=== PATIENT | female | born 1990 | race Caucasian/White ===

== ENCOUNTER 2016-06-08 11:37 | Emergency (ER) | payer BC ==
[2016-06-08 11:58] VITALS: BP 146/89
[2016-06-08] MEDS ORDERED: ALBUTEROL SULFATE/IPRATROPIUM 3 ML NEBU IH ONE ×2 (12:18→12:22)
--- NOTE | 2016-06-08 13:20 | ERNOTE ---
Date of Service: 06/08/16 Time Seen by Provider: 06/08/16 12:05 Stated Complaint: COUGH,DIZZINESS Presenting Symptoms:: cough Exam Limitations: no limitations Immunizations: IMMUNIZATION HX Immunizations Up to Date Yes History of Influenza Vaccine No Hx Pneumococcal Vaccination No Allergies/Adverse Reactions: Allergies No Known Allergies Allergy (Verified 06/08/16 11:58) Home Medications: HOME MEDICATIONS Promethazine HCl/Codeine [Phenergan W/Codeine Syrup] 5 ml PO Q8H PRN #90 ml [Last Taken Unknown] - History of Present Ilness Narrative: Patient comes due to coughing and wheezing Timing: intermittent Severity: moderate Frequency/Possible Cause: Denies: allergen exposure, irritant gases exposure, smoke exposure, foreign travel Modifying Factors - Improves: Reports: nothing Modifying Factors - Worsens: Reports: coughing Associated Symptoms: Reports: cough, shortness of breath, sore throat, fever/ chills Prior Treatment: Reports: recently seen - Patient was given Tx by PCP recently Review of Systems - Review of Systems Constitutional: Present: fever, chills, malaise EYE: Present: no symptoms reported ENT: Present: no symptoms reported Respiratory: Present: cough - some production does not know the color, wheezing Cardiology: Present: no symptoms reported Gastrointestinal/Abdominal: Present: no symptoms reported Genitourinary: Present: no symptoms reported Musculoskeletal: Present: no symptoms reported Skin: Present: no symptoms reported Neurological: Present: no symptoms reported Endocrine: Present: no symptoms reported Hematologic/Lymphatic: Absent: easy bruising, easy bleeding Psych: Present: no symptoms reported - Patient's Past Medical History Patient History - Medical: Obesity Patient History - Cardiac/Respiratory: No pertinent hx Patient History - Cancer: No Hx of Cancer Patient History - Surgical Procedures: No surgical history - Social History Living Situations: home Does anyone smoke in the home?: No Smoking Status: Never smoker Have you smoked in the past 12 months: No Alcohol Use: none Drug Use: none Physical Exam - Physical Exam General Appearance: Present: wd/wn, alert, no apparent distress Eye Exam: Normal inspection: bilateral, PERRL: bilateral Ears, Nose, Throat: Present: normal ENT inspection, hearing grossly normal, normal pharynx Neck: Present: normal inspection, nontender. Absent: carotid bruit Respiratory: Present: no respiratory distress, no accessory muscle use, expiration (prolonged), wheezing - scattered. Absent: crackles, rales Cardiovascular/Chest: Present: regular rate, rhythm. Absent: systolic murmur, diastolic murmur Gastrointestinal/Abdominal: Present: nontender, nondistended, soft, no organomegaly Back Exam: Present: no CVA tenderness Extremity Exam: Present: normal inspection, non-tender, no edema, normal range of motion Neurological Exam: Present: alert, oriented, normal mood/affect, no motor/ sensory deficits Skin Exam: Present: normal color, warm/dry Lymphatic Exam: Present: no adenopathy ED Progress - Date and Time Seen: Date and Time: 06/08/16 13:19 Patient show clinical improvement with Tx. Patient is to continue Tx as PCP recommended. Patient at the moment with no distress and is not toxic nor septic. - Vital Signs Patient's Vital Signs:: I have reviewed the patient's vital signs. Vital Signs: Vital Signs 06/08/16 06/08/16 06/08/16 11:52 12:24 12:33 Temperature 36.6 C Pulse Rate 81 82 109 H Respiratory 16 12 12 Rate Blood Pressure 146/89 O2 Sat by Pulse 99 98 98 Oximetry - X-Ray X-Ray #1 X-Ray: chest Interpretation: Interp. by me X-ray Comments: No consolidation were seen on film. - Progress/Reassessment Chief Complaint: Upper Respiratory Symptoms Progress:: Re-examined - Transfer of Care Expected Disposition: Discharge Departure - Departure Clinical Impression: Bronchitis Disposition: Home self-care Condition: Stable Instructions: Bronchospasm, Adult, Acute Bronchitis Referrals: Haleigh Bland MD [Primary Care Provider] - Prescriptions: Promethazine HCl/Codeine [Phenergan W/Codeine Syrup] 5 ml PO Q8H PRN #90 ml PRN Reason: Cough
== END 2016-06-08 13:21 | disposition home or self-care (01) ==
LOC: ER 11:37
DX: J40 Bronchitis, not specified as acute or chronic (principal)

== ENCOUNTER 2017-04-23 17:56 | Emergency (ER) | payer OTHER ==
[2017-04-23 18:33] LABS: Urine Appearance Clear; Urine Bilirubin Negative (NEGATIVE); Urine Blood 250 /ul (NEGATIVE); Urine Color Dark Yellow; Urine Ketone Negative (NEGATIVE); Urine Nitrite Negative (NEGATIVE); Urine Protein Negative (NEGATIVE); Urine Urobilinogen Normal (NORMAL)
[2017-04-23 18:34] LABS: Urine Bacteria None Seen; Urine RBC 0-5 /hpf (0-5); Urine WBC 0-5 /hpf (0-5)
[2017-04-23] MEDS ORDERED: PHENAZOPYRIDINE HCL 100 MG TABLET PO ONE (18:56)
--- NOTE | 2017-04-23 18:57 | ERNOTE ---
ER Female HPI Date of Service: 04/23/17 Stated Complaint: PELVIC/VAGINAL PAIN Presenting Symptoms: dysuria Time Seen by Provider: 04/23/17 18:36 Source: patient, RN notes reviewed Exam Limitations: no limitations Immunizations: IMMUNIZATION HX Immunizations Up to Date Yes History of Influenza Vaccine No Hx Pneumococcal Vaccination No Allergies/Adverse Reactions: Allergies No Known Allergies Allergy (Verified 04/23/17 18:03) Home Medications: HOME MEDICATIONS Phenazopyridine HCl [Pyridium] 200 mg PO Q8H PRN #10 tablet 04/23/17 [Last Taken Unknown] - History of Present Illness Narrative: 26 year old female presents to the ED for suprapubic pain that began 2 days ago. She also reports dysuria. She denies fevers or vomiting. She denies any current flank pain as well, but reports that she thought she was having back problems last week. The pain was localized to the left flank region. She reports having a "stomach flu" the week before she had the back pain. Date (Duration): 04/21/17 Timing: Present: intermittent Quality: Present: moderate, burning Onset Location: Present: suprapubic Radiation: Present: none Activities at Onset: Present: none Prior Abdominal Problems: Present: other - vomiting/diarrhea several days prior Sexual [employer] History: Present: not active Prior Treatment: Absent: recently seen, currently on antibiotics Review of Systems - Review of Systems Constitutional: Absent: fever, chills EYE: Present: no symptoms reported ENT: Present: no symptoms reported Respiratory: Present: no symptoms reported Cardiology: Present: no symptoms reported Gastrointestinal/Abdominal: Absent: nausea, vomiting, diarrhea, constipation, eating less, drinking less Genitourinary: Present: frequency, dysuria. Absent: hematuria, decreased urinary output Musculoskeletal: Absent: back pain, muscle pain Skin: Absent: rash, lesions Neurological: Absent: headache, dizziness/light-headedness Endocrine: Present: no symptoms reported Hematologic/Lymphatic: Absent: easy bruising, easy bleeding Psych: Present: no symptoms reported - Patient's Past Medical History Patient History - Medical: Obesity Patient History - Cardiac/Respiratory: No pertinent hx Patient History - Cancer: No Hx of Cancer Patient History - Surgical Procedures: No surgical history Patient History - Other: None LMP (females 10-50): 3 weeks - Social History Living Situations: home Abuse History: No History of abuse Psych History: No pertinent hx Smoking Status: Never smoker Have you smoked in the past 12 months: No Do you dip or chew tobacco: No Alcohol Use: none Drug Use: none - Immunizations Immunizations Up to Date: Yes Hx Pneumococcal Vaccination: No History of Influenza Vaccine: No Physical Exam - Physical Exam General Appearance: Present: alert, no apparent distress, obese Head Exam: Present: normal inspection Neck: Present: normal inspection, nontender, supple Respiratory: Present: no respiratory distress, normal breath sounds, no accessory muscle use, lungs clear Cardiovascular/Chest: Present: regular rate, rhythm, no murmur Gastrointestinal/Abdominal: Present: soft, tenderness - suprapubic, distended - extremely obese Back Exam: Present: normal inspection, no CVA tenderness Extremity Exam: Present: normal inspection, normal range of motion Neurological Exam: Present: alert, oriented, normal mood/affect, no motor/ sensory deficits Skin Exam: Present: normal color, warm/dry ED Progress - Results and Orders Patient's Lab Results:: I have reviewed the patient's lab results. - Vital Signs Patient's Vital Signs:: I have reviewed the patient's vital signs. Vital Signs: Vital Signs 04/23/17 18:04 Temperature 36.6 C Pulse Rate 78 Respiratory 14 Rate Blood Pressure 168/106 O2 Sat by Pulse 98 Oximetry - CT/Ultrasound CT/Ultrasound Narrative: Stone protocol CT shows a 3 mm stone within the bladder lumen Negative for hydronephrosis Intrarenal stones on left Normal appendix Mild stool retention -per [facility] preliminary report - Progress/Reassessment Chief Complaint: Genitourinary Problem Progress:: Improved Plan - Plan Plan: Symptoms improved with Pyridium. Discussed CT results, a 3mm stone in the bladder should pass without much difficulty but discussed need to f/u if she develops fever, vomiting, or cannot urinate - or to see urology if her dysuria and suprapubic pain continues beyond mid-week. Departure Clinical Impression: Bladder calculus - Departure Disposition: Home Follow Up Needed Condition: Good Instructions: Kidney Stones, Ciiz-fl-Agbs, Form - Excuse from Work, School, or Physical Activity Additional Instructions: Drink a lot of water Return for fever, vomiting or inability to urinate Contact a urologist if pain has not improved in 3 to 4 days Referrals: Clinton Melara MD [Associate] - Prescriptions: Phenazopyridine HCl [Pyridium] 200 mg PO Q8H PRN #10 tablet PRN Reason: Pain
[2017-04-23] MEDS ORDERED: PHENAZOPYRIDINE HCL 100 MG TABLET ONE (19:02)
[2017-04-23 19:21] LABS: Hematocrit 41.7 % (37.0-47.0); Hemoglobin 13.8 gm/dL (12.5-16.0); Mean Cell Volume 83.9 fl (78-100); Mean Corpuscular Hemoglobin 27.8 pg (27-31); Mean Corpuscular Hgb Conc 33.1 g/dl (32-36); Neutrophil # 8.6 K/mm3 (1.3-6.0); Neutrophil % 73.5 % (42-75.0); Platelet Count 308 K/mm3 (150-450); Red Blood Count 4.97 M/mm3 (4.2-5.4); White Blood Count 11.7 K/mm3 (4.0-10.5)
[2017-04-23 19:35] LABS: Albumin * 3.3 gm/dl (3.4-5.0); Anion Gap 15.5 mmol/L (6.8-13.8); BUN/Creatinine Ratio 15.3 (9.0-21.6); Bilirubin, Total 0.6 mg/dL (0.0-1.1); Ca. Corrected For Albumin 8.8 mg/dL (8.4-10.2); Calcium * 8.6 mg/dL (7.9-10.9); Carbon Dioxide 26.2 mmol/L (24-32.6); Potassium 3.7 mmol/L (3.4-4.6); Total Protein 8.5 gm/dL (6.2-8.2)
[2017-04-23 22:00] VITALS: BP 147/94
== END 2017-04-23 21:05 | disposition home or self-care (01) ==
LOC: ER 17:56
DX: N21.0 Calculus in bladder (principal)

== ENCOUNTER 2017-04-25 12:52 | Emergency (ER) | payer OTHER ==
[2017-04-25 13:11] VITALS: BP 152/95
[2017-04-25] MEDS ORDERED: KETOROLAC TROMETHAMINE 30 MG/ML VIAL IM ONE (14:17)
[2017-04-25] MEDS ORDERED: KETOROLAC TROMETHAMINE 30 MG/ML VIAL ONE (14:31)
[2017-04-25 14:43] LABS: Urine Amorphous Sediment Few - 1+ (NONE-FEW); Urine Bacteria 2+; Urine RBC 0-5 /hpf (0-5); Urine WBC 0-5 /hpf (0-5)
--- NOTE | 2017-04-25 15:07 | ERNOTE ---
ER Female HPI Date of Service: 04/25/17 Stated Complaint: KIDNEY STONE Presenting Symptoms: other - back and left low abdominal pain Time Seen by Provider: 04/25/17 13:54 Source: patient Exam Limitations: no limitations Immunizations: IMMUNIZATION HX Immunizations Up to Date Yes History of Influenza Vaccine No Hx Pneumococcal Vaccination No Allergies/Adverse Reactions: Allergies No Known Allergies Allergy (Verified 04/25/17 13:11) Home Medications: HOME MEDICATIONS Phenazopyridine HCl [Pyridium] 200 mg PO Q8H PRN #10 tablet 04/23/17 [Last Taken Unknown] Cefuroxime Axetil [Ceftin] 250 mg PO Q12H #14 tab 04/25/17 [Last Taken Unknown] Naproxen [Naprosyn] 375 mg PO BID PRN #10 tab 04/25/17 [Last Taken Unknown] - History of Present Illness Narrative: Patient presents to the ED with pain in left low back and left low abdomen with some dysuria. She was recently seen here with the same Sx and diagnosed with recently passed kidney stone by CT scan. She denies fever or vomiting. No diarrhea. Pain moderate new. Nothign seems to make it better or worse. Timing: Present: other - waxing and waning. Quality: Present: moderate Onset Location: Present: other - left low back and left low abd Prior Abdominal Problems: Present: other - recently seen Modifying Factors - (Improves): Present: other - nothing Modifying Factors - (Worsens): Present: other - nothing Associated Symptoms: Absent: fever/chills, nausea, vomiting Prior Treatment: Present: recently seen Review of Systems - Review of Systems Constitutional: Absent: fever Respiratory: Absent: shortness of breath Cardiology: Absent: chest pain Gastrointestinal/Abdominal: Present: See HPI Genitourinary: Absent: decreased urinary output - Patient's Past Medical History Patient History - Medical: Kidney stone, Obesity Patient History - Cardiac/Respiratory: No pertinent hx Patient History - Cancer: No Hx of Cancer Patient History - Surgical Procedures: No surgical history Patient History - Other: None LMP (females 10-50): last week - Social History Living Situations: home Abuse History: No History of abuse Psych History: No pertinent hx - Immunizations Immunizations Up to Date: Yes Hx Pneumococcal Vaccination: No History of Influenza Vaccine: No Physical Exam - Physical Exam General Appearance: Present: alert, no apparent distress Head Exam: Present: normal inspection, no evidence of injury Eye Exam: Normal inspection: bilateral, PERRL: bilateral Ears, Nose, Throat: Present: normal ENT inspection Neck: Present: normal inspection Respiratory: Present: no respiratory distress, normal breath sounds, no accessory muscle use, lungs clear Cardiovascular/Chest: Present: regular rate, rhythm Gastrointestinal/Abdominal: Present: normal bowel sounds, soft, other - very minimal LLQ tenderness to palption. No guarding or rebound. No peritoneal signs Back Exam: Present: other - mild left low back tenderness to palpation Extremity Exam: Present: normal inspection Neurological Exam: Present: alert, no motor/sensory deficits Skin Exam: Present: normal color, warm/dry. Absent: skin rash ED Progress - Results and Orders Patient's Lab Results:: I have reviewed the patient's lab results. - Vital Signs Patient's Vital Signs:: I have reviewed the patient's vital signs. Vital Signs: Vital Signs 04/25/17 13:07 Temperature 36.6 C Pulse Rate 74 Respiratory 14 Rate Blood Pressure 152/95 O2 Sat by Pulse 98 Oximetry - Progress/Reassessment Chief Complaint: Genitourinary Problem Progress Note-Subjective: 04/25/17 15:03 She had recent passes kidney stone by CT. i do not feel repeat CT indicated. Will cover her urine with ABx and give her anti inflammatories. I do not feel additional lab testing indicated at this time. She would like to go home. I discussed warning signs and reasons to return as well as the need for close f/u. Departure Clinical Impression: Back pain - Departure Disposition: Home self-care Condition: Stable Additional Instructions: Take antibiotic as directed Call your doctor today to schedule an appointment in the next day or two for a re-check. Return here for fever, increased pain, vomiting or if your condition worsens or changes in any way. Referrals: Haleigh Bland MD [Primary Care Provider] - Prescriptions: Cefuroxime Axetil [Ceftin] 250 mg PO Q12H #14 tab Naproxen [Naprosyn] 375 mg PO BID PRN #10 tab PRN Reason: Pain
== END 2017-04-25 15:15 | disposition home or self-care (01) ==
LOC: ER 12:52
DX: Z87.442 Personal history of urinary calculi; M54.9 Dorsalgia, unspecified
CPT/HCPCS: 81015; 96372; 99284